=== PATIENT | female | born 1970 | race Caucasian/White ===

== ENCOUNTER 2021-02-02 00:10 | Inpatient (IN) | payer MEDICARE, MEDICAID, SELFPAY ==
[2021-02-02] VITALS (41 sets, daily range): BP systolic 102–146; BP diastolic 74–110; PULSE 117–135; RESP 14–30; TEMP 36.1–37.2; O2SAT 86–100; BMI 24.3
--- NOTE | ~2021-02-02 | XR_ITS ---
EXAMINATION: XR chest 1V portable DATE: 02/02/2021 21:04 INDICATION: Decreased oxygen saturation. TECHNIQUE: A single frontal view of the chest was obtained. COMPARISON: None. FINDINGS: There are mild airspace opacities in the mid and lower lung zones. No pleural effusion or p neumothorax. The heart size is normal. IMPRESSION: 1. Mild airspace opacities in the mid and lower lung zones, consistent with atelectasis or less likel y pneumonia. Reviewed, dictated and finalized at location A. IMPRESSION: 1. Mild airspace opacities in the mid and lower lung zones, consistent with ate lectasis or less likely pneumonia.
--- NOTE | ~2021-02-02 | CT_ITS ---
EXAMINATION: CT brain wo con DATE: 02/02/2021 00:37 INDICATION: Seizure TECHNIQUE: Computed tomography (CT) of the head was performed without intravenous contrast. Sagittal and coronal reconstructions were performed. The mA was adjusted according to patient size. Iterative reconstruction technique was employed. The dose-length product was 605.33 mGy-cm. COMPARISON: None FINDINGS: No acute intracranial hemorrhage, acute infarction or abnormal extra axial fluid collection. Ventricl es are normal and symmetric. No mass/mass effect. The orbits, paranasal sinuses and mastoid air cells are normal. IMPRESSION: 1. Normal head CT. Reviewed, dictated and finalized at location A. IMPRESSION: 1. Normal head CT.
--- NOTE | ~2021-02-02 | CT_ITS ---
EXAMINATION: CT cervical spine wo con DATE: 02/02/2021 00:37 INDICATION: Seizure with with head injury post fall. TECHNIQUE: Computed tomography (CT) of the cervical spine was performed without intravenous contrast. Automated exposure control and iterative reconstruction technique were employed. The dose-length pro duct was 208.75 mGy-cm. COMPARISON: None FINDINGS: Scattered motion artifact most prominent at the level of C4. Straightening of the normal cervical diana dosis which could be positional or secondary to muscle spasm. No fracture. Mild disc height loss at C 6-C7 with suggestion of disc bulge with mild central canal stenosis at this level. Multilevel moderat e to severe right-sided and mild to moderate left-sided cervical facet osteoarthritis. This contribut es to mild neural foraminal stenosis at a few levels on both the left and right cervical soft tissues are unremarkable. Biapical mild emphysema with mild pleural parenchymal scarring. IMPRESSION: 1. Mild cervical spondylosis without evident acute osseous abnormality. Evaluation mildly limited by some motion artifact. Reviewed, dictated and finalized at location A. IMPRESSION: 1. Mild cervical spondylosis without evident acute osseous abnormality. Evaluat ion mildly limited by some motion artifact.
--- NOTE | ~2021-02-02 | US_ITS ---
EXAMINATION: US abdomen limited DATE: 02/06/2021 08:40 INDICATION: Right upper quadrant pain TECHNIQUE: Multiple grayscale and Doppler ultrasound images of the abdomen were obtained. COMPARISON: None available FINDINGS: The head and body of the pancreas are normal. The pancreatic tail is obscured by bowel gas. The liver demonstrates increased echogenicity, heterogenous echotexture, and decreased through trans mission. There is nodularity of the liver surface. Normal hepatopetal flow in the main portal vein. T he gallbladder is surgically absent. The normal common bile duct measures 7 mm. IMPRESSION: 1. Cirrhosis. Reviewed, dictated and finalized at location B. IMPRESSION: 1. Cirrhosis.
--- NOTE | 2021-02-02 00:17 | PC.NURSE ---
Pt suctioned prn and head of bed elevated to protect airway.
--- NOTE | 2021-02-02 00:19 | ECG_ITS ---
Measurements Intervals [place] Rate: 129 P: 65 OR: 128 QRS: -1 QRSD: 90 T: 70 QT: 334 QTc: 489 Interpretive Statements SINUS TACHYCARDIA LOW QRS VOLTAGE IN PRECORDIAL LEADS BORDERLINE ST-T WAVE ABNORMALITY- DIFFUSE LEADS BASELINE ARTIFACT- I, II, III, AVR, AVL, AVF, V1-V6 ABNORMAL ECG Electronically Signed On 02-02-2021 6:35:21 CDT by Morgan Lau D.O.
--- NOTE | 2021-02-02 00:27 | PC.NURSE ---
Pt to CT via stretcher with RAQUEL Serrano in attendance.
--- NOTE | 2021-02-02 00:36 | PC.NURSE ---
Pt returns from CT. Sitting up, pt speaking nonsensically. Attempt to reorient. Mother at bedside.
[2021-02-02] MEDS: SODIUM CHLORIDE 0.9% IV 1,000 ML 999 ML IV CONT (00:40)
[2021-02-02] MEDS: levETIRAcetam 1000MG/NACL100ML 1,000 MG/100 ML BAG 400 MG IVPB (00:40)
--- NOTE | 2021-02-02 00:41 | PC.NURSE ---
Mother states pt has a pain pump for chronic pain from her pancreatitis. Also takes meds for breakthrough pain and is on methadone for pain control as well.
[2021-02-02 00:52] LABS: Basophils Absolute Auto 0.1 K/mm3 (0.0-0.1); Basophils Percent Auto 0.5 % (0.2-1.2); Eosinophils Percent Auto 0.2 % (0-4.4); Hematocrit 47.5 % (37.0-47.0); Hemoglobin 15.3 g/dL (12.0-15.0); Immature Granulocyte Percent A 0.5 % (0-0.5); Lymphocytes Absolute Auto 2.18 K/mm3 (0.9-3.2); Lymphocytes Percent Auto 11.8 % (18.3-44.2); Mean Corpuscular HGB Conc 32.2 g/dl (32-36); Mean Corpuscular Hemoglobin 32.9 pg (26-34); Mean Corpuscular Volume 102.2 fl (80-100); Mean Platelet Volume 10.1 fl (7.4-10.4); Monocytes Absolute Auto 1.4 K/mm3 (0.1-0.6); Monocytes Percent Auto 7.6 % (2.6-8.5); Neutrophils Absolute Auto 14.7 K/mm3 (1.3-6.7); Neutrophils Percent Auto 79.4 % (45.5-73.1); Platelet Count Result 258 k/mm3 (150-375); Red Blood Count 4.65 M/mm3 (4.2-5.4); Red Cell Distribution Width 12.9 % (11.5-14.5); White Blood Count 18.5 K/mm3 (4.5-10.0)
[2021-02-02 01:00] LABS: INR 1.1; Prothrombin Time 13.9 Seconds (11.1-14.7)
[2021-02-02 01:01] LABS: Partial Thromboplastin Time 26.4 SECONDS (22.3-36.8)
--- NOTE | 2021-02-02 01:04 | PC.NURSE ---
Pt's mother remains at bedside. Pt is sitting up, follows some commands. Some words come out clear and others are garbled. Note pt seems to have expressive aphasia. Pt's mother states that the patient was last seen normal at approx 2230, states at approx 2300 mom heard a noise and pt had fallen in her bedroom, causing a head laceration. Mom states pt was acting wierd after hitting her head, came out of the bedroom and mom had cleaned her up. Mom then witnessed a seizure, and contacted EMS. EMS report pt had a grand mal seizure enroute to the hospital. No hx of seizures per mother.
[2021-02-02 01:12] LABS: Acetaminophen < 10 ug/mL (10-30); Ammonia 40 umol/L (9-30); Ethanol < 10 mg/dL (<10); Salicylate < 1.0 mg/dL (2-20)
[2021-02-02 01:13] LABS: Albumin Level 3.9 g/dL (3.5-5.1); Alkaline Phosphatase 397 U/L (38-126); Anion Gap 18 mmol/L (8-16); Aspartate Amino Transferase 153 U/L (14-36); Bilirubin,Total 1.1 mg/dL (0.2-1.3); Blood Urea Nitrogen 3 mg/dL (7-17); Calcium 8.2 mg/dL (8.4-10.2); Carbon Dioxide 14 mmol/L (22-30); Chloride 100 mmol/L (98-107); Creatine Kinase 88 U/L (30-135); Estimated Glomerular Filt Rate > 60; Glucose 321 mg/dL (65-110); Potassium 3.4 mmol/L (3.4-5.0); Sodium 132 mmol/L (137-145)
[2021-02-02 01:16] LABS: Amphetamine Screen Urine Negative (Negative); Barbiturate Screen Urine Negative (Negative); Benzodiazepines Screen Urine Negative (Negative); Cannabinoid Screen Urine Negative (Negative); Cocaine Screen Urine Negative (Negative); Methadone Screen Urine Positive (Negative); Opiate Screen Urine Positive (Negative); Phencyclidine Screen Urine Negative (Negative)
[2021-02-02 01:30] LABS: Add Urine Microscopic? YES; Appearance Urine Clear (Clear); Bilirubin Urine Negative (Negative); Blood Urine 2+ (Negative); Color Urine Straw (Yellow); Glucose Urine UA 3+ mg/dL (Negative); Ketones Urine Trace mg/dL (Negative); Leukocyte Esterase Ur Negative LEU/UL (Negative); Mucus Urine Rare /lpf; Nitrate Urine Negative (Negative); Protein Urine 1+ mg/dL (Negative); RBC Urine 0-2 /hpf (0-2); Specific Grav Ur 1.008 (1.001-1.035); Squamous Epithelial Cell Urine Rare /hpf (Few); Urobilinogen Urine Negative mg/dL (<2.0); WBC Urine 0-3 /hpf
[2021-02-02 01:38] LABS: Alanine Aminotransferase 74 U/L (4-35)
--- NOTE | 2021-02-02 02:17 | PC.NURSE ---
Pt's noe wrist restraints removed. Pt is able to verbalize that she has a catheter in. States I'm still confused sometimes, I'm sorry if I wasn't right . Explained that the restraints were placed only for her safety and that the patient has improved mentation at this time so we can remove. Mother remains at bedside. Pt reoriented PRN.
--- NOTE | 2021-02-02 02:51 | ED.SEIZURE ---
HPI - Seizure General Chief Complaint: Seizure Stated Complaint: SZ with long postictal period Time Seen by Provider: 02/02/21 00:18 Source: family, EMS and RN notes reviewed History of Present Illness HPI Narrative: Patient brought in for concern for seizure. Family noted a loud noise upstairs and went to evaluate the patient they noted she is bleeding from the head and appear confused they attempted to have her sit down then developed convulsive movements they called EMS. On EMS arrival they felt the patient was postictal sugar was 160 they brought her to the ER for evaluation. Is probable to the ER EMS reported a seizure in the ambulance and they gave Ativan which resolved her symptoms. Related Data Home Medications Medication Instructions Recorded Confirmed amlodipine 5 mg PO DAILY 02/02/21 02/02/21 bupropion HCl 150 mg PO DAILY 02/02/21 02/02/21 levorphanol tartrate 2 mg PO Q12H PRN 02/02/21 02/02/21 [id number] [Creon] See Rx Instructions .ROUTE .COMPLEX 02/02/21 02/02/21 methadone 5 mg PO Q12H 02/02/21 02/02/21 ondansetron HCl [Zofran] 4 mg PO Q8H PRN 02/02/21 02/02/21 ziprasidone HCl 20 mg PO BID 02/02/21 02/02/21 Allergies Allergy/AdvReac Type Severity Reaction Status Date / Time Sulfa (Sulfonamide Allergy Mild HIVES Verified 02/02/21 04:32 Antibiotics) Iodinated Contrast Media Allergy Unknown Swelling Verified 02/02/21 07:41 of Lip/Tongue/Throat PROPOXYPHENE NAPSYLATE Allergy Mild INCONTINENT Uncoded 02/02/21 00:38 OF BOWELS/BLADDER/EXTREME VOMITING Review of Systems Review of Systems: ROS unobtainable: Yes unobtainable due to mental status PMFSH Social History Social History Smoking packs per day: 1 Smoking cigarettes per day: 20.0 Years smoked: 10 Smoking pack-years: 10.00 Smoking status: Former smoker Alcohol intake: current Substance use: former Substance use type: marijuana Last use: states unable to remember last drink, a couple weeks Spiritual care concerns: No Exam Narrative: GENERAL: Well-appearing, well-nourished, unresponsive HEAD: Hematoma noted on the left parietal area with superficial laceration with wounds already well approximated EYES: PERRLA and EOMI. ENT: Nares clear, no rhinorrhea or epistaxis. Mucous membranes moist. NECK: Supple. No masses. No JVD CHEST: Clear to auscultation. No respiratory distress. No wheezes rales or rhonchi HEART: Regular rate and rhythm. No murmur heard. Normal peripheral pulses. ABDOMEN: Soft, nontender, nondistended EXTREMITIES: No edema. SKIN: Warm, dry, no rash. NEURO: Unresponsive moves all extremities spontaneously localizes to noxious stimuli Course Reevaluation(s) Reevaluation #1: Patient's mental status used to improve and she is able to give more history. She does report significant alcohol use last drink was yesterday she also reports she is managed at a pain clinic for chronic pancreatitis. She is able to follow commands and her exam is now nonfocal. Patient comfortable with inpatient plan. Date: 02/02/21 Time: 02:51 Vital Signs Vital signs: Vital Signs Temperature 37.1 C 02/02/21 00:11 Pulse Rate 134 H 02/02/21 00:11 Respiratory Rate 19 02/02/21 00:11 Blood Pressure 120/108 H 02/02/21 00:11 Pulse Oximetry 99 02/02/21 00:11 Temperature 36.2 C L 02/02/21 04:00 Pulse Rate 128 H 02/02/21 04:00 Respiratory Rate 18 02/02/21 04:00 Blood Pressure 136/87 02/02/21 04:00 Pulse Oximetry 91 02/02/21 04:00 MDM - Seizure MDM Narrative Medical decision making narrative: Patient presented to the ER for new onset seizures. Patient was initially somnolent and nonverbal however mental status improved and her exam was without focal neurological deficits. Labs and imaging obtained labs with leukocytosis and elevated lactate likely related to suspected seizure. Imaging was without acute process.
--- NOTE | 2021-02-02 03:31 | PC.NURSE ---
Note expressive aphasia seems gone. Pt is A/O x3, and is lucid to normal level per her mother. No further seizure activity noted.
[2021-02-02 03:49] LABS: Reflex Lactic Acid Yes or No Add Lactic
[2021-02-02] MEDS: SODIUM CHLORIDE 0.9% IV 1,000 ML 125 ML IV CONT ×2 (03:53→05:36)
[2021-02-02 04:44] LABS: Lactic Acid 3.4 mmol/L (0.7-2.1)
--- NOTE | 2021-02-02 05:16 | PM.IMHP ---
H&P: HPI History of Present Illness Date/Time: 02/02/21 05:16 Chief Complaint: Seizure Narrative: This is a 50-year-old female with past medical history significant for tobacco dependence, alcohol dependence, chronic opiate use, on methadone program, pain pump implanted. Patient was brought to the emergency room after family witnessed a seizure she was found down having seizure-like activity an blood running on her forehead EMS was called and patient was taken to the emergency room on route to the hospital patient had a witnessed seizure while in the ambulance for which he received Ativan. At the time of my visit patient was awake alert but could not remember the events. She has been in her usual state of health according to emergency room records. Preliminary workup has been essentially nonrevealing. Patient denies any discomfort at the time of my visit she wants to reinitiate her pain pump. Review of Systems Review of Systems: Patient is unable to give any history she is postictal was brought to the emergency room after she was witnessed to have a seizure episode while at home by family member ROS unobtainable: Yes unobtainable due to mental status (Postictal) [facility] Social History Social History Smoking packs per day: 1 Smoking cigarettes per day: 20.0 Years smoked: 10 Smoking pack-years: 10.00 Smoking status: Former smoker Alcohol intake: current Substance use: former Substance use type: marijuana Last use: states unable to remember last drink, a couple weeks Spiritual care concerns: No Meds Home Medications and Allergies Allergies Allergy/AdvReac Type Severity Reaction Status Date / Time Sulfa (Sulfonamide Allergy Mild HIVES Verified 02/02/21 04:32 Antibiotics) PROPOXYPHENE NAPSYLATE Allergy Mild INCONTINENT Uncoded 02/02/21 00:38 OF BOWELS/BLADDER/EXTREME VOMITING Contrast Media Allergy Unknown EAR AND Uncoded 02/02/21 00:38 TONGUE SWELLING Vital Signs Vital Signs - 24 hr 02/02/21 00:11 02/02/21 00:37 02/02/21 00:45 Temperature 98.7 F Pulse Rate 134 H 131 H 126 H Respiratory Rate 19 15 Blood Pressure 120/108 H Pulse Oximetry 99 02/02/21 00:46 02/02/21 01:00 02/02/21 01:01 Temperature Pulse Rate 130 H 129 H 131 H Respiratory Rate 23 H 20 22 H Blood Pressure 123/101 H 125/86 Pulse Oximetry 02/02/21 01:02 02/02/21 01:15 02/02/21 01:16 Temperature Pulse Rate 124 H 129 H Respiratory Rate 23 H 18 21 H Blood Pressure 134/85 Pulse Oximetry 02/02/21 01:30 02/02/21 01:31 02/02/21 01:45 Temperature Pulse Rate 124 H 124 H 126 H Respiratory Rate 22 H 25 H 25 H Blood Pressure 124/86 Pulse Oximetry 02/02/21 01:46 02/02/21 02:00 02/02/21 02:01 Temperature Pulse Rate 126 H 121 H 120 H Respiratory Rate 23 H 30 H 29 H Blood Pressure 137/91 H 134/88 Pulse Oximetry 02/02/21 02:15 02/02/21 02:16 02/02/21 02:30 Temperature Pulse Rate 123 H 126 H 124 H Respiratory Rate 19 16 17 Blood Pressure 136/98 H Pulse Oximetry 02/02/21 02:31 02/02/21 02:45 02/02/21 02:46 Temperature Pulse Rate 122 H 132 H 132 H Respiratory Rate 21 H 24 H 14 Blood Pressure 132/92 H 131/80 Pulse Oximetry 02/02/21 03:00 02/02/21 03:01 02/02/21 03:15 Temperature Pulse Rate 122 H 123 H 123 H Respiratory Rate 20 21 H 27 H Blood Pressure 131/78 Pulse Oximetry 02/02/21 03:16 02/02/21 03:17 02/02/21 03:30 Temperature Pulse Rate 123 H 125 H 126 H Respiratory Rate 22 H 20 25 H Blood Pressure 140/110 H 146/101 H Pulse Oximetry 02/02/21 03:31 02/02/21 03:33 02/02/21 04:00 Temperature 97.2 F L Pulse Rate 128 H 122 H 128 H Respiratory Rate 20 25 H 18 Blood Pressure 128/95 H 136/87 Pulse Oximetry 91 Exam Narrative: Laying in bed Const: General: cooperative, comfortable, no acute distress, well developed, alert and ester
--- NOTE | 2021-02-02 05:52 | ADMIMU ---
This patient, Elizabeth Arreola, was admitted to IMU status, and placed in IMU Room 201-01 02/02/21 at 0405. Patient/family oriented to hospital policies and general routines including ID bracelet, bed and alarms, visiting hours, pain management, procedures, bathroom and other care routines, personal items, smoking policy, room service/diet, and visiting hours. Information on how to activate the Rapid Response Team has been discussed. Patient/Family are encouraged to report perceived risks to care and to ask questions if they do not understand what they are told or what they should do.
--- NOTE | 2021-02-02 08:11 | PC.NURSE ---
This patient, Elizabeth Arreola, was admitted to IMU Room 201-01. Patient/family oriented to hospital policies and general routines including ID bracelet, bed and alarms, visiting hours, pain management, procedures, bathroom and other care routines, personal items, smoking policy, room service/diet, and visiting hours. Pt is forgetful and anxious and needs frequent reminding. Information on how to activate the Rapid Response Team has been discussed. Patient/Family are encouraged to report perceived risks to care and to ask questions if they do not understand what they are told or what they should do.
[2021-02-02] MEDS: methADONE HCL (*CRX) 10 MG TABLET 5 MG PO ×2 (11:43→21:34)
[2021-02-02] MEDS: LIPASE/AMYLASE/PROTEASE 12,000 UNITS CAP 6 CAP PO ×2 (11:43→16:59)
[2021-02-02] MEDS: amLODIPine BESYLATE 5 MG TABLET PO (11:44)
[2021-02-02] MEDS: buPROPion HCL SR (12 HR) 150 MG TAB PO (11:44)
[2021-02-02] MEDS: ZIPRASIDONE HCL 20 MG CAPSULE PO ×2 (11:44→21:35)
[2021-02-02] MEDS: LORazepam INJ (*CRX) 2 MG/ML VIAL 1 MG IV PUSH ×2 (11:45→17:06)
--- NOTE | 2021-02-02 12:03 | PM.IMPN ---
Progress Note: A&P Assessment and Plan (1) Altered mental status: Qualifiers: Altered mental status type: unspecified Qualified Code(s): R41.82 - Altered mental status, unspecified Code(s): R41.82 - Altered mental status, unspecified Status: Acute Assessment and Plan: Secondary to seizure episode, possibly also due to alcohol w/d Neurology evaluation pending MRI brain pending 02/02 to medical floor (2) Seizure: Code(s): R56.9 - Unspecified convulsions Status: Acute Assessment and Plan: Patient was loaded with Keppra at admission and continues on Keppra Possibly secondary to withdrawal from alcohol (3) Opiate dependence: Qualifiers: Substance use status: with other opioid-induced disorder Qualified Code(s): F11.288 - Opioid dependence with other opioid-induced disorder Code(s): F11.20 - Opioid dependence, uncomplicated Status: Acute Assessment and Plan: Continue methadone 5mg bid (4) Chronic pain: Qualifiers: Chronic pain type: chronic pain syndrome Qualified Code(s): G89.4 - Chronic pain syndrome Code(s): G89.29 - Other chronic pain Status: Acute Assessment and Plan: Continue methadone and epidural analgesic pump Add Aqua-K pad (5) Alcohol dependence: Qualifiers: Substance use status: in withdrawal Complication of substance-induced condition: with unspecified complication Qualified Code(s): F10.239 - Alcohol dependence with withdrawal, unspecified Code(s): F10.20 - Alcohol dependence, uncomplicated Status: Acute Assessment and Plan: CIWA protocol with PRN lorazepam Due to methadone use and higher risk for respiratory suppression, will NOT initiate routine chlordiazepoxide (6) Sinus tachycardia: Code(s): R00.0 - Tachycardia, unspecified Status: Acute Assessment and Plan: Likely due to anxiety, alcohol w/d Subjective Date/time seen: 02/02/21 12:03 Interval history: Admitted with generalized tonic-clonic seizure. No prior hx seizures. 02/02 visit: Only pain is chronic epigastric abdominal pain. Nausea today. No emesis. Chronic issues with intermittent n/v. Thinks that her last drink of alcohol was weeks ago , but is not certain. Denied missing any doses of her home medications. Rarely takes levophanol. Does not know what meds are in her epidural analgesic pump. Review of Systems Review of Systems: All systems reviewed & are unremarkable except as noted in HPI and below Exam Narrative: HEENT: PERRL, sclerae nonicteric, pharyngeal mucosa pink and intact NECK: No JVD CHEST: Clear to auscultation. Normal effort. HEART: NL S1/S2, regular, no murmur ABDOMEN: BS+, soft, nontender, no mass, no bruits EXTREMITIES: No cyanosis, edema, or clubbing NEUROLOGIC: CN intact and symmetric to inspection. MUSCULOSKELETAL: Tone and strength symmetric. PSYCH: Alert. Oriented to person, place, BUT NOT TO YEAR ( 1999 ) OR MONTH SKIN:Violaceous, reticular rash over abdomen. Objective Data Vital Signs Vital Signs: Vital Signs - 24 hr 02/02/21 00:11 02/02/21 00:37 02/02/21 00:45 Temperature 98.7 F Pulse Rate 134 H 131 H 126 H Respiratory Rate 19 15 Blood Pressure 120/108 H Pulse Oximetry 99 02/02/21 00:46 02/02/21 01:00 02/02/21 01:01 Temperature Pulse Rate 130 H 129 H 131 H Respiratory Rate 23 H 20 22 H Blood Pressure 123/101 H 125/86 Pulse Oximetry 02/02/21 01:02 02/02/21 01:15 02/02/21 01:16 Temperature Pulse Rate 124 H 129 H Respiratory Rate 23 H 18 21 H Blood Pressure 134/85 Pulse Oximetry 02/02/21 01:30 02/02/21 01:31 02/02/21 01:45 Temperature Pulse Rate 124 H 124 H 126 H Respiratory Rate 22 H 25 H 25 H Blood Pressure 124/86 Pulse Oximetry 02/02/21 01:46 02/02/21 02:00 02/02/21 02:01 Temperature Pulse Rate 126 H 121 H 120 H Respiratory Rate 23 H 30 H 29 H Blood Pressure 137/91
--- NOTE | 2021-02-02 14:26 | WPDNEURCNPN ---
Assessment and Plan Additional Plan change in the mental status with a history of seizures which probably related to alcohol withdrawal MRI of the brain is pending in the meantime supportive care be continued as such patient has already been started on Keppra further adjustment will be made according cervical spine CT scan does not show any fracture and dislocation Consult date: 02/02/21 Time Seen: 14:00 HPI: Elizabeth Arreola is a 50 year old female has been admitted to the [facility] through the emergency room for the complaints of seizure in addition to the history of 1. Tobacco dependence 2. Alcohol dependence 3. Chronic opiates use 4. History of being on methadone program with the pain pump implanted. Patient of brought to the emergency room for the seizure-like activity . EMS were called to the scene and she was brought to the emergency room and route to the hospital patient had witnessed generalized seizure which she received Ativan by the time she was seen in the hospital she was awake alert but had no recall of the incident. She does have ongoing history of smoking pack years 10 current alcohol drinker former substance abuser and present substance is Tonia Godfrey and she was unable to remember when was the last drink she was found to have leukocytosis on CBC BMP was normal with low sodium of 132 hepatic enzymes were with ALT 74 alkaline phos 397 albumin 3.9 and total bilirubin of 1.1 but AST 153 and ALT 74, initial CT scan of the head was negative with no evidence of bleed and the x-ray CT scan of cervical spine revealed spondylosis Review of Systems Review of Systems: All systems reviewed & are unremarkable except as noted in HPI and below PMFSH Social History Social History Smoking packs per day: 1 Smoking cigarettes per day: 20.0 Years smoked: 10 Smoking pack-years: 10.00 Smoking status: Former smoker Alcohol intake: current Substance use: former Substance use type: marijuana Last use: states unable to remember last drink, a couple weeks Spiritual care concerns: No Meds Home Medications and Allergies Home Medications Medication Instructions Recorded Confirmed Type amlodipine 5 mg PO DAILY 02/02/21 02/02/21 History bupropion HCl 150 mg PO DAILY 02/02/21 02/02/21 History levorphanol tartrate 2 mg PO Q12H PRN 02/02/21 02/02/21 History [id number] [Creon] See Rx Instructions .ROUTE .COMPLEX 02/02/21 02/02/21 History methadone 5 mg PO Q12H 02/02/21 02/02/21 History ondansetron HCl [Zofran] 4 mg PO Q8H PRN 02/02/21 02/02/21 History ziprasidone HCl 20 mg PO BID 02/02/21 02/02/21 History Allergies Allergy/AdvReac Type Severity Reaction Status Date / Time Sulfa (Sulfonamide Allergy Mild HIVES Verified 02/02/21 04:32 Antibiotics) Iodinated Contrast Media Allergy Unknown Swelling Verified 02/02/21 07:41 of Lip/Tongue/Throat PROPOXYPHENE NAPSYLATE Allergy Mild INCONTINENT Uncoded 02/02/21 00:38 OF BOWELS/BLADDER/EXTREME VOMITING Vital Signs Vital Signs - 24 hr 02/02/21 00:11 02/02/21 00:37 02/02/21 00:45 Temperature 37.1 C Pulse Rate 134 H 131 H 126 H Respiratory Rate 19 15 Blood Pressure 120/108 H Pulse Oximetry 99 02/02/21 00:46 02/02/21 01:00 02/02/21 01:01 Temperature Pulse Rate 130 H 129 H 131 H Respiratory Rate 23 H 20 22 H Blood Pressure 123/101 H 125/86 Pulse Oximetry 02/02/21 01:02 02/02/21 01:15 02/02/21 01:16 Temperature Pulse Rate 124 H 129 H Respiratory Rate 23 H 18 21 H Blood Pressure 134/85 Pulse Oximetry 02/02/21 01:30 02/02/21 01:31 02/02/21 01:45 Temperature Pulse Rate 124 H 124 H 126 H Respiratory Rate 22 H 25 H 25 H Blood Pressure 124/86 Pulse Oximetry 02/02/21 01:46 02/02/21 02:00 02/02/21 02:01 Temperature Pulse Rate 126 H 121 H 120 H Respiratory Rate 23 H 30 H 29 H Blood Pressure 137/91 H 134/88 Pulse Oximetry
--- NOTE | 2021-02-02 15:57 | PC.NURSE ---
This patient, Elizabeth Arreola, was transferred to [facility] on 02/02/21 at 1550. Personal belongings sent with patient. Report given to Marissa GARCÍA. Appropriate documentation sent with patient.
[2021-02-02] MEDS: ALBUTEROL SULFATE NEB 2.5 MG/0.5 ML INH INHALATION (20:50)
[2021-02-02] MEDS: methylPREDNISolone SOD SUCC 125 MG VIAL IV PUSH (22:30)
[2021-02-02 22:33] LABS: Alveolar/Arterial O2 Gradient 245.3 mmHg; Base Excess ABG 1.5 mEq/l (+/-2.0); Fractional Inspired Oxygen 48 %; HCO3 ABG 26.1 mEq/l (22.0-26.0); Oxygen Content ABG 20.4 %vol (16.0-22.0); Oxyhemoglobin 86.1 % THb (90.0-100.0); PCO2 ABG 41.4 mmHg (35.0-45.0); PO2 ABG 50.2 mmHg (80.0-100.0); PO2 FiO2 Ratio Arterial Blood 1.05 %; Total Hemoglobin 16.9 g/dL (12.0-18.0); pH ABG 7.418 (7.350-7.450)
[2021-02-02 22:36] LABS: Oxygen Saturation ABG 86.2 % (95.0-100.0)
[2021-02-02 22:37] LABS: Device HIGH FLOW NASAL CANN; Site Drawn RIGHT BRACHIAL
[2021-02-03] VITALS (12 sets, daily range): BP systolic 111–133; BP diastolic 72–90; PULSE 110–123; RESP 16–22; TEMP 36.3–36.9; O2SAT 74–100
--- NOTE | 2021-02-03 00:25 | PC.NURSE ---
report given to Dora Lui RN and pt transferred to room 333
--- NOTE | 2021-02-03 00:36 | PC.NURSE ---
This patient, Elizabeth Nelson Prabhjotregi, was received from [ [address] [place] [address] ] on 02/03/21 at 0025. Patient/family oriented to unit policies and routines
[2021-02-03] MEDS: LORazepam INJ (*CRX) 2 MG/ML VIAL 1 MG IV PUSH ×3 (02:31→09:59)
[2021-02-03] MEDS: ALBUTEROL SULFATE NEB 2.5 MG/0.5 ML INH INHALATION (03:09)
[2021-02-03] MEDS: IPRATROPIUM BR 0.02% INH SOLN 0.5 MG/2.5 ML VIAL INHALATION (03:09)
[2021-02-03 07:25] LABS: Hematocrit 49.7 % (37.0-47.0); Hemoglobin 16.4 g/dL (12.0-15.0); Mean Corpuscular Hemoglobin 33.3 pg (26-34); Mean Corpuscular Volume 100.8 fl (80-100); Mean Platelet Volume 9.5 fl (7.4-10.4); Platelet Count Result 233 k/mm3 (150-375); Red Blood Count 4.93 M/mm3 (4.2-5.4); Red Cell Distribution Width 12.9 % (11.5-14.5); White Blood Count 17.3 K/mm3 (4.5-10.0)
[2021-02-03 07:37] LABS: Alanine Aminotransferase 60 U/L (4-35); Albumin Level 3.5 g/dL (3.5-5.1); Alkaline Phosphatase 337 U/L (38-126); Anion Gap 7 mmol/L (8-16); Aspartate Amino Transferase 98 U/L (14-36); Bilirubin,Total 1.6 mg/dL (0.2-1.3); Blood Urea Nitrogen 7 mg/dL (7-17); Calcium 7.2 mg/dL (8.4-10.2); Carbon Dioxide 23 mmol/L (22-30); Chloride 100 mmol/L (98-107); Estimated CRCL calculation 123 ml/min; Estimated Glomerular Filt Rate > 60; Glucose 186 mg/dL (65-110); Potassium 3.3 mmol/L (3.4-5.0); Sodium 130 mmol/L (137-145)
[2021-02-03 08:41] LABS: Folic Acid 10.4 ng/mL (2.76->20)
--- NOTE | 2021-02-03 08:51 | PM.IMPN ---
Progress Note: A&P Assessment and Plan (1) Acute respiratory failure with hypoxemia: Code(s): J96.01 - Acute respiratory failure with hypoxia Status: Acute Assessment and Plan: ASPIRATION PNEUMONIA IS CLINICALLY MOST LIKELY ETIOLOGY with increased wbc, bilateral LL infiltrates and crackles, in the setting of altered mental status I/O NOT c/w fluid overload and no hx chf ABNL CXR and IMPROVED tachycardia render PE unlikely No other etiology of V/Q mismatch suspected (eg, sepsis) Treat with oxygen, Zosyn, bronchodilators COVID-19 swab is pending but pretest probability of disease is LOW Continue isolation while awaiting results (2) Altered mental status: Qualifiers: Altered mental status type: unspecified Qualified Code(s): R41.82 - Altered mental status, unspecified Code(s): R41.82 - Altered mental status, unspecified Status: Acute Assessment and Plan: Secondary to seizure episode, possibly also due to alcohol w/d Neurology evaluation pending MRI brain pending 02/02 to medical floor 02/03 still a bit confused, perhaps in part due to hypoxemia, cannot exclude recurrent seizure (3) Seizure: Code(s): R56.9 - Unspecified convulsions Status: Acute Assessment and Plan: Patient was loaded with Keppra at admission Possibly secondary to withdrawal from alcohol BID Keppra 500mg (4) Opiate dependence: Qualifiers: Substance use status: with other opioid-induced disorder Qualified Code(s): F11.288 - Opioid dependence with other opioid-induced disorder Code(s): F11.20 - Opioid dependence, uncomplicated Status: Acute Assessment and Plan: Continue methadone 5mg bid Continue epidural analgexic pump (5) Chronic pain: Qualifiers: Chronic pain type: chronic pain syndrome Qualified Code(s): G89.4 - Chronic pain syndrome Code(s): G89.29 - Other chronic pain Status: Acute Assessment and Plan: Continue methadone and epidural analgesic pump PRN Aqua-K pad (6) Alcohol dependence: Qualifiers: Substance use status: in withdrawal Complication of substance-induced condition: with unspecified complication Qualified Code(s): F10.239 - Alcohol dependence with withdrawal, unspecified Code(s): F10.20 - Alcohol dependence, uncomplicated Status: Acute Assessment and Plan: WA protocol with PRN lorazepam Due to methadone use and higher risk for respiratory suppression, will NOT initiate routine chlordiazepoxide (7) Sinus tachycardia: Code(s): R00.0 - Tachycardia, unspecified Status: Acute Assessment and Plan: Likely due to anxiety, alcohol w/d 02/02 improved Subjective Date/time seen: 02/03/21 08:51 Interval history: Admitted with generalized tonic-clonic seizure. No prior hx seizures. 02/03 visit: Overnight SOB with decreased sats. Went from room air to 9 L oxygen by high flow cannula. Denied cough or choking. Received lorazepam prn for anxiety. Only pain is chronic epigastric abdominal pain. Hx chronic pancreatitis. Thinks that her last drink of alcohol was weeks ago , but is not certain. Denied missing any doses of her home medications. Rarely takes levophanol. Does not know what meds are in her epidural analgesic pump. Review of Systems Review of Systems: All systems reviewed & are unremarkable except as noted in HPI and below Exam Narrative: HEENT: PERRL, sclerae nonicteric, pharyngeal mucosa pink and intact NECK: No JVD CHEST: BILATERAL LL COARSE CRACKLES. Normal effort. HEART: NL S1/S2, regular, no murmur ABDOMEN: BS+, soft, nontender, no mass, no bruits EXTREMITIES: No cyanosis, edema, or clubbing NEUROLOGIC: CN intact and symmetric to inspection. MUSCULOSKELETAL: Tone and strength symmetric. PSYCH: Alert. Oriented to person, place (HOSPITAL, BUT NOT NAME OF HOSPITAL), BUT NOT TO YEAR ( 2022 ) OR MONTH SKIN:Violaceous, reticular rash over abd
[2021-02-03] MEDS: POTASSIUM CHLORIDE 20 MEQ TABLET 40 MEQ PO ×2 (09:14→13:31)
[2021-02-03] MEDS: ZIPRASIDONE HCL 20 MG CAPSULE PO ×2 (09:15→21:04)
[2021-02-03] MEDS: buPROPion HCL SR (12 HR) 150 MG TAB PO (09:16)
[2021-02-03] MEDS: amLODIPine BESYLATE 5 MG TABLET PO (09:17)
[2021-02-03] MEDS: LIPASE/AMYLASE/PROTEASE 12,000 UNITS CAP 6 CAP PO ×3 (09:17→16:49)
[2021-02-03] MEDS: methADONE HCL (*CRX) 10 MG TABLET 5 MG PO ×2 (09:20→21:01)
[2021-02-03 09:26] LABS: Hepatitis B Surface Antigen Negative (Negative)
[2021-02-03 09:31] LABS: HAV RESULT Negative (Negative); Hepatitis B Core IgM Result Negative (Negative)
[2021-02-03 09:43] LABS: Hepatitis C Virus Antibody Negative (Negative)
[2021-02-03] MEDS: levETIRAcetam 500 MG TABLET PO ×2 (09:59→21:00)
[2021-02-03 19:24] LABS: Urine Cotinine NEGATIVE
[2021-02-03] MEDS: NICOTINE (*PBKC) 7 MG PATCH 1 PATCH TRANSDERM (21:02)
[2021-02-03] MEDS: ALBUTEROL SULFATE (*SP) INHALER 2 PUFF INHALATION (21:28)
[2021-02-04] VITALS (12 sets, daily range): BP systolic 114–128; BP diastolic 72–86; PULSE 105–125; RESP 16–18; TEMP 36.4–36.7; O2SAT 92–99
[2021-02-04 03:44] LABS: SARS-CoV-2 RNA PCR Negative
[2021-02-04 08:03] LABS: Hematocrit 53.2 % (37.0-47.0); Hemoglobin 17.8 g/dL (12.0-15.0); Mean Corpuscular HGB Conc 33.5 g/dl (32-36); Mean Corpuscular Hemoglobin 33.3 pg (26-34); Mean Corpuscular Volume 99.6 fl (80-100); Mean Platelet Volume 9.9 fl (7.4-10.4); Platelet Count Result 249 k/mm3 (150-375); Red Blood Count 5.34 M/mm3 (4.2-5.4); Red Cell Distribution Width 12.8 % (11.5-14.5); White Blood Count 17.4 K/mm3 (4.5-10.0)
[2021-02-04 08:17] LABS: Alanine Aminotransferase 76 U/L (4-35); Albumin Level 3.7 g/dL (3.5-5.1); Alkaline Phosphatase 340 U/L (38-126); Anion Gap 8 mmol/L (8-16); Aspartate Amino Transferase 160 U/L (14-36); Bilirubin,Total 1.6 mg/dL (0.2-1.3); Blood Urea Nitrogen 7 mg/dL (7-17); Calcium 8.2 mg/dL (8.4-10.2); Carbon Dioxide 23 mmol/L (22-30); Chloride 100 mmol/L (98-107); Estimated CRCL calculation 101 ml/min; Estimated Glomerular Filt Rate > 60; Glucose 138 mg/dL (65-110); Magnesium 2.1 mg/dL (1.6-2.3); Sodium 131 mmol/L (137-145)
[2021-02-04] MEDS: LIPASE/AMYLASE/PROTEASE 12,000 UNITS CAP 6 CAP PO ×3 (08:33→16:58)
[2021-02-04] MEDS: buPROPion HCL SR (12 HR) 150 MG TAB PO (08:33)
[2021-02-04] MEDS: ZIPRASIDONE HCL 20 MG CAPSULE PO ×2 (08:34→21:31)
[2021-02-04] MEDS: amLODIPine BESYLATE 5 MG TABLET PO (08:34)
[2021-02-04] MEDS: methADONE HCL (*CRX) 10 MG TABLET 5 MG PO ×2 (08:40→21:31)
[2021-02-04] MEDS: levETIRAcetam 500 MG TABLET PO ×2 (10:42→21:31)
--- NOTE | 2021-02-04 13:08 | PM.IMPN ---
Progress Note: A&P Assessment and Plan (1) Acute respiratory failure with hypoxemia: Code(s): J96.01 - Acute respiratory failure with hypoxia Status: Acute Assessment and Plan: ASPIRATION PNEUMONIA IS CLINICALLY MOST LIKELY ETIOLOGY with increased wbc, bilateral LL infiltrates and crackles, in the setting of altered mental status I/O NOT c/w fluid overload and no hx chf ABNL CXR and IMPROVED tachycardia render PE unlikely No other etiology of V/Q mismatch suspected (eg, sepsis) Treat with oxygen, Zosyn, bronchodilators COVID-19 swab is pending but pretest probability of disease is LOW Continue isolation while awaiting results 02/04 patient was brought to the emergency department after she was found to have witnessed seizure and was started on Keppra, CT scan of the head was negative, patient also had CT scan of the cervical spine did not show any acute injury, patient chest x-ray shows lower lobe pneumonia concerning for aspiration as patient was having witnessed seizures, patient being treated with Zosyn, today patient states feeling little better, denies any complaint of cough shortness of breath fever or chills, patient was seen by Neurology suspect most likely patient is having alcohol withdrawal seizure, recommending MRI further evaluate, patient is allergic to contrast will do MRI without contrast and will follow. (2) Altered mental status: Qualifiers: Altered mental status type: unspecified Qualified Code(s): R41.82 - Altered mental status, unspecified Code(s): R41.82 - Altered mental status, unspecified Status: Acute Assessment and Plan: Secondary to seizure episode, possibly also due to alcohol w/d Neurology evaluation pending MRI brain pending 02/02 to medical floor 02/03 still a bit confused, perhaps in part due to hypoxemia, cannot exclude recurrent seizure (3) Seizure: Code(s): R56.9 - Unspecified convulsions Status: Acute Assessment and Plan: Patient was loaded with Keppra at admission Possibly secondary to withdrawal from alcohol BID Keppra 500mg (4) Opiate dependence: Qualifiers: Substance use status: with other opioid-induced disorder Qualified Code(s): F11.288 - Opioid dependence with other opioid-induced disorder Code(s): F11.20 - Opioid dependence, uncomplicated Status: Acute Assessment and Plan: Continue methadone 5mg bid Continue epidural analgexic pump (5) Chronic pain: Qualifiers: Chronic pain type: chronic pain syndrome Qualified Code(s): G89.4 - Chronic pain syndrome Code(s): G89.29 - Other chronic pain Status: Acute Assessment and Plan: Continue methadone and epidural analgesic pump PRN Aqua-K pad (6) Alcohol dependence: Qualifiers: Substance use status: in withdrawal Complication of substance-induced condition: with unspecified complication Qualified Code(s): F10.239 - Alcohol dependence with withdrawal, unspecified Code(s): F10.20 - Alcohol dependence, uncomplicated Status: Acute Assessment and Plan: CIWA protocol with PRN lorazepam Due to methadone use and higher risk for respiratory suppression, will NOT initiate routine chlordiazepoxide (7) Sinus tachycardia: Code(s): R00.0 - Tachycardia, unspecified Status: Acute Assessment and Plan: Likely due to anxiety, alcohol w/d 02/02 improved Subjective Date/time seen: 02/04/21 13:08 02/02 Chief Complaint: Seizure Narrative: This is a 50-year-old female with past medical history significant for tobacco dependence, alcohol dependence, chronic opiate use, on methadone program, pain pump implanted. Patient was brought to the emergency room after family witnessed a seizure she was found down having seizure-like activity an blood running on her forehead EMS was called and patient was taken to the emergency room on route to the hospital patient had a witnessed seizure whil
[2021-02-04] MEDS: LORazepam INJ (*CRX) 2 MG/ML VIAL 1 MG IV PUSH (16:57)
[2021-02-04] MEDS: NAPROXEN SODIUM 275 MG TABLET PO (16:59)
[2021-02-04] MEDS: NICOTINE (*PBKC) 7 MG PATCH 1 PATCH TRANSDERM (21:00)
[2021-02-05] VITALS (10 sets, daily range): BP systolic 113–126; BP diastolic 81–89; PULSE 66–117; RESP 18–20; TEMP 36.5–36.8; O2SAT 93–96
[2021-02-05 06:34] LABS: Hematocrit 48.9 % (37.0-47.0); Hemoglobin 16.5 g/dL (12.0-15.0); Mean Corpuscular HGB Conc 33.7 g/dl (32-36); Mean Corpuscular Hemoglobin 33.3 pg (26-34); Mean Corpuscular Volume 98.6 fl (80-100); Mean Platelet Volume 9.8 fl (7.4-10.4); Platelet Count Result 222 k/mm3 (150-375); Red Blood Count 4.96 M/mm3 (4.2-5.4); White Blood Count 11.1 K/mm3 (4.5-10.0)
[2021-02-05 06:55] LABS: Alanine Aminotransferase 79 U/L (4-35); Albumin Level 3.1 g/dL (3.5-5.1); Alkaline Phosphatase 283 U/L (38-126); Anion Gap 6 mmol/L (8-16); Aspartate Amino Transferase 170 U/L (14-36); Bilirubin,Total 1.5 mg/dL (0.2-1.3); Blood Urea Nitrogen 9 mg/dL (7-17); Calcium 7.9 mg/dL (8.4-10.2); Carbon Dioxide 22 mmol/L (22-30); Chloride 103 mmol/L (98-107); Estimated CRCL calculation 101 ml/min; Estimated Glomerular Filt Rate > 60; Glucose 112 mg/dL (65-110); Potassium 3.7 mmol/L (3.4-5.0); Sodium 131 mmol/L (137-145)
[2021-02-05] MEDS: LIPASE/AMYLASE/PROTEASE 12,000 UNITS CAP 6 CAP PO ×3 (08:46→16:18)
[2021-02-05] MEDS: NAPROXEN SODIUM 275 MG TABLET PO ×2 (08:47→16:18)
[2021-02-05] MEDS: levETIRAcetam 500 MG TABLET PO ×2 (08:47→20:24)
[2021-02-05] MEDS: amLODIPine BESYLATE 5 MG TABLET PO (08:47)
[2021-02-05] MEDS: buPROPion HCL SR (12 HR) 150 MG TAB PO (08:47)
[2021-02-05] MEDS: ZIPRASIDONE HCL 20 MG CAPSULE PO ×2 (08:47→20:39)
[2021-02-05] MEDS: methADONE HCL (*CRX) 10 MG TABLET 5 MG PO ×2 (08:52→20:24)
--- NOTE | 2021-02-05 10:03 | WPDNEUROLOGY ---
Neurology EEG Report General Information Date of Study: 02/05/21 TEST eeg DIAGNOSIS Seizures CONDITION OF RECORDING awake and drowsy EEG NUMBER [id number] CLINICAL HISTORY patient was brought into hospital 4 days ago with altered mental status following a new onset of seizures. EEG DESCRIPTION Basic resting occipital frequency consists of poorly organized low voltage 8 to 10 hertz per 2nd alpha admixed with low-voltage 15 to 18 hertz per 2nd beta. asymmetrical right-sided low to medium voltage 5 to 7 hertz per 2nd theta is seen admixed with 3 to 4 hertz per 2nd delta activity. Hyperventilation not done. Photic stimulation not done. Non paroxysmal. Focal. Lateralizing. IMPRESSION Abnormal record due to the presence of asymmetrical theta and delta activity with right-sided dominance these abnormalities are suggestive of underlying focal structure lesion or else seizure focus clinical correlation recommended
[2021-02-05 12:58] LABS: Prolactin 23.7 ng/mL (***)
--- NOTE | 2021-02-05 16:16 | PM.IMPN ---
Progress Note: A&P Assessment and Plan (1) Acute respiratory failure with hypoxemia: Code(s): J96.01 - Acute respiratory failure with hypoxia Status: Acute Assessment and Plan: Improving, patient comfortable having conversation on room air. Although she does endorse intermittently becoming short of breath, especially when getting up to move around. Chest x-ray consistent with aspiration pneumonia, bilateral infiltrates and crackles. I/O NOT c/w fluid overload and no hx chf ABNL CXR and IMPROVED tachycardia render PE unlikely No other etiology of V/Q mismatch suspected (eg, sepsis) Treat with oxygen, Zosyn, bronchodilators COVID-19 swab is pending but pretest probability of disease is LOW Continue isolation while awaiting results (2) Altered mental status: Qualifiers: Altered mental status type: unspecified Qualified Code(s): R41.82 - Altered mental status, unspecified Code(s): R41.82 - Altered mental status, unspecified Status: Acute Assessment and Plan: Returned to baseline, patient able to coherently have conversation with interviewer. EEG done 9-, potentially abnormal, appreciate Neurology input Secondary to seizure episode, possibly also due to alcohol w/d (3) Seizure: Code(s): R56.9 - Unspecified convulsions Status: Acute Assessment and Plan: Patient was loaded with Keppra at admission Possibly secondary to withdrawal from alcohol BID Keppra 500mg Neuro on consult, appreciate input (4) Chronic pain: Qualifiers: Chronic pain type: chronic pain syndrome Qualified Code(s): G89.4 - Chronic pain syndrome Code(s): G89.29 - Other chronic pain Status: Acute Assessment and Plan: Continue methadone and epidural analgesic pump PRN Aqua-K pad (5) Alcohol dependence: Qualifiers: Substance use status: in withdrawal Complication of substance-induced condition: with unspecified complication Qualified Code(s): F10.239 - Alcohol dependence with withdrawal, unspecified Code(s): F10.20 - Alcohol dependence, uncomplicated Status: Acute Assessment and Plan: WA protocol with PRN lorazepam Due to methadone use and higher risk for respiratory suppression, will NOT initiate routine chlordiazepoxide Liver US Subjective Date/time seen: 02/05/21 16:16 Resting comfortably in bed. Mentation is at baseline. No acute distress. Review of Systems Review of Systems: All systems reviewed & are unremarkable except as noted in HPI and below Exam Const: General: no acute distress Neck: Neck: no JVD Resp: Effort & Inspection: normal respiratory effort Auscultation: clear to auscultation bilaterally Cardio: Rate: regular rate Rhythm: regular rhythm GI: GI Palp: Yes Soft to palpation and No Tenderness to palpation present (GI) Other: Some pain to palpation over epigastric area. Pain pump implanted in right upper quadrant. Objective Data Vital Signs Vital Signs: Vital Signs - 24 hr 02/04/21 20:00 02/04/21 22:00 02/05/21 00:00 Temperature 98.1 F Pulse Rate 105 H 112 H 104 H Respiratory Rate 18 Blood Pressure 127/76 Pulse Oximetry 92 92 02/05/21 01:50 02/05/21 04:00 02/05/21 06:00 Temperature 98.3 F Pulse Rate 117 H 106 H Respiratory Rate 18 Blood Pressure 113/81 Pulse Oximetry 96 94 02/05/21 08:00 02/05/21 12:00 02/05/21 14:00 Temperature 97.8 F Pulse Rate 103 H 115 H 110 H Respiratory Rate 20 Blood Pressure 117/81 Pulse Oximetry 93 93 Intake/Output Intake/Output: Intake & Output 02/02/21 02/03/21 02/04/21 02/05/21 23:59 23:59 23:59 23:59 Intake Total 3220 1050 2370 1430 Output Total 3250 950 3850 1000 Balance -30 100 -1480 430 Meds/Results Medications: Active Medications Generic Name Dose Route Start Last Admin Trade Name Freq PRN Reason Stop Dose Admin Albuterol 2 puff 02/03/21 10:49 02/03/21 21:28 Albuterol Sulfate
[2021-02-05] MEDS: NICOTINE (*PBKC) 7 MG PATCH 1 PATCH TRANSDERM (20:25)
[2021-02-06 05:29] VITALS: BP 133/83; PULSE 102; RESP 18; TEMP 36.8; O2SAT 97
[2021-02-06 06:49] LABS: Basophils Percent Auto 0.3 % (0.2-1.2); Eosinophils Percent Auto 0.4 % (0-4.4); Hemoglobin 16.5 g/dL (12.0-15.0); Immature Granulocyte Absolute 0.06 K/mm3 (0.00-0.031); Immature Granulocyte Percent A 0.7 % (0-0.5); Lymphocytes Absolute Auto 2.19 K/mm3 (0.9-3.2); Mean Corpuscular HGB Conc 33.7 g/dl (32-36); Mean Platelet Volume 9.6 fl (7.4-10.4); Monocytes Absolute Auto 1.1 K/mm3 (0.1-0.6); Monocytes Percent Auto 11.9 % (2.6-8.5); Neutrophils Absolute Auto 5.7 K/mm3 (1.3-6.7); Neutrophils Percent Auto 62.7 % (45.5-73.1); Platelet Count Result 235 k/mm3 (150-375); Red Cell Distribution Width 13.1 % (11.5-14.5); White Blood Count 9.1 K/mm3 (4.5-10.0)
[2021-02-06 07:14] LABS: Alanine Aminotransferase 85 U/L (4-35); Albumin Level 3.3 g/dL (3.5-5.1); Alkaline Phosphatase 284 U/L (38-126); Anion Gap 9 mmol/L (8-16); Aspartate Amino Transferase 166 U/L (14-36); Bilirubin,Total 1.2 mg/dL (0.2-1.3); Blood Urea Nitrogen 9 mg/dL (7-17); Calcium 8.1 mg/dL (8.4-10.2); Carbon Dioxide 20 mmol/L (22-30); Chloride 103 mmol/L (98-107); Estimated CRCL calculation 86 ml/min; Estimated Glomerular Filt Rate > 60; Glucose 106 mg/dL (65-110); Magnesium 1.9 mg/dL (1.6-2.3); Phosphorus 1.7 mg/dL (2.5-4.5); Potassium 3.3 mmol/L (3.4-5.0); Sodium 132 mmol/L (137-145)
[2021-02-06] MEDS: LIPASE/AMYLASE/PROTEASE 12,000 UNITS CAP 6 CAP PO ×3 (09:02→17:22)
[2021-02-06] MEDS: levETIRAcetam 500 MG TABLET PO ×2 (09:03→20:06)
[2021-02-06] MEDS: amLODIPine BESYLATE 5 MG TABLET PO (09:03)
[2021-02-06] MEDS: NAPROXEN SODIUM 275 MG TABLET PO ×2 (09:03→17:22)
[2021-02-06] MEDS: buPROPion HCL SR (12 HR) 150 MG TAB PO (09:04)
[2021-02-06] MEDS: ZIPRASIDONE HCL 20 MG CAPSULE PO ×2 (09:04→20:06)
[2021-02-06] MEDS: methADONE HCL (*CRX) 10 MG TABLET 5 MG PO ×2 (09:07→20:07)
[2021-02-06 09:40] LABS: Atypical Lymphocytes Present; Platelet Estimate Adequate (Adequate)
[2021-02-06 10:16] VITALS: BP 120/83; PULSE 99; RESP 14; TEMP 36.6; O2SAT 95
[2021-02-06 10:33] VITALS: BP 120/83; PULSE 98; RESP 18; TEMP 36.6; O2SAT 96
[2021-02-06] MEDS: POTASSIUM PHOS/SODIUM PHOS 250 MG TABLET PO (10:38)
--- NOTE | 2021-02-06 13:14 | PM.IMPN ---
Progress Note: A&P Assessment and Plan (1) Chronic pancreatitis: Code(s): K86.1 - Other chronic pancreatitis Status: Acute (2) Aspiration pneumonia: Code(s): J69.0 - Pneumonitis due to inhalation of food and vomit Status: Acute Assessment and Plan: transition from IV Zosyn to 875 twice a day p.o. Augmentin I/O NOT c/w fluid overload and no hx chf ABNL CXR and IMPROVED tachycardia render PE unlikely No other etiology of V/Q mismatch suspected (eg, sepsis) Treat with oxygen, Zosyn, bronchodilators COVID-19 swab is pending but pretest probability of disease is LOW Continue isolation while awaiting results (3) Liver cirrhosis: Code(s): K74.60 - Unspecified cirrhosis of liver Status: Acute Assessment and Plan: confirmed on ultrasound earlier today. will hold amlodipine, and start 20 twice a day propranolol obtain AFP and INR will need outpatient follow-up with GI or hepatology (4) Seizure: Code(s): R56.9 - Unspecified convulsions Status: Acute Assessment and Plan: Patient was loaded with Keppra at admission Possibly secondary to withdrawal from alcohol BID Keppra 500mg Neuro on consult, appreciate input (5) Alcohol dependence: Qualifiers: Substance use status: in withdrawal Complication of substance-induced condition: with unspecified complication Qualified Code(s): F10.239 - Alcohol dependence with withdrawal, unspecified Code(s): F10.20 - Alcohol dependence, uncomplicated Status: Acute Assessment and Plan: [facility] protocol with PRN lorazepam Due to methadone use and higher risk for respiratory suppression, will NOT initiate routine chlordiazepoxide (6) Altered mental status: Qualifiers: Altered mental status type: unspecified Qualified Code(s): R41.82 - Altered mental status, unspecified Code(s): R41.82 - Altered mental status, unspecified Status: Acute Assessment and Plan: Returned to baseline, patient able to coherently have conversation with interviewer. EEG done 02-05, potentially abnormal, appreciate Neurology input Secondary to seizure episode, possibly also due to alcohol w/d Additional Plan patient's mentation has return to baseline. Neuro on consult for management following 1 observed seizure prior to admission, currently on Keppra. Liver ultrasound showing cirrhosis, will start 20 b.i.d. propranolol and observe heart rate and blood pressure. Also obtain AFP an INR, and patient will need close follow-up outpatient with GI or hepatology. Unlikely to be liver transplant candidate given long history of alcoholism. Change antibiotics for aspiration pneumonia from IV Zosyn to p.o. Augmentin b.i.d.. If doing well on these changes tomorrow, can plan for discharge. Subjective Date/time seen: 02/06/21 13:14 No acute medical complaints, continued mild abdominal pain. breathing symptoms have resolved. No fevers or chills, no chest pain. Review of Systems Review of Systems: All systems reviewed & are unremarkable except as noted in HPI and below Exam Const: General: no acute distress Neck: Neck: no JVD Resp: Effort & Inspection: normal respiratory effort Auscultation: clear to auscultation bilaterally Cardio: Rate: regular rate Rhythm: regular rhythm GI: GI Palp: Yes Soft to palpation and Yes Tenderness to palpation present (GI) Other: Mild tenderness to gentle palpation of epigastric area Objective Data Vital Signs Vital Signs: Vital Signs - 24 hr 02/05/21 14:00 02/05/21 16:00 02/05/21 20:00 Temperature 97.8 F Pulse Rate 110 H 103 H 109 H Respiratory Rate 20 Blood Pressure 117/81 Pulse Oximetry 93 02/05/21 21:32 02/06/21 05:29 02/06/21 10:16 Temperature 97.7 F 98.3 F 97.9 F Pulse Rate 66 102 H 99 Respiratory Rate 18 18 14 Blood Pressure 126/89 133/83 120/83 Pulse Oximetry 95 97 95 02/06/21 10:33 Temperature 97.9 F Pulse Rate 9
[2021-02-06 14:18] VITALS: BP 118/90; PULSE 100; RESP 12; TEMP 37; O2SAT 98
[2021-02-06 14:22] LABS: INR 1.1; Prothrombin Time 13.7 Seconds (11.1-14.7)
[2021-02-06] MEDS: ENOXAPARIN 40 MG/0.4 ML SYRINGE SUB-Q (14:22)
--- NOTE | 2021-02-06 15:28 | PC.NURSE ---
On 02/06/21, the student, Helen Oviedo, provided care and completed [facility] documentation on this patient. I have reviewed the student's documentation and agree with the findings.
[2021-02-06 20:06] VITALS: PULSE 72
[2021-02-06] MEDS: AMOXICILLIN/CLAVULANATE K 875-125 MG TAB 1 TABLET PO (20:06)
[2021-02-06] MEDS: PROPRANOLOL HCL 20 MG TABLET PO (20:06)
[2021-02-06] MEDS: NICOTINE (*PBKC) 7 MG PATCH 1 PATCH TRANSDERM (20:09)
[2021-02-06 21:28] VITALS: BP 127/90; PULSE 72; RESP 16; TEMP 36.2; O2SAT 96
[2021-02-07] MEDS: MORPHINE SULFATE (*CRX) 4 MG/ML INJ IV PUSH (02:39)
[2021-02-07 06:00] VITALS: BP 125/89; PULSE 85; RESP 16; TEMP 36.2; O2SAT 97
[2021-02-07 06:59] LABS: Basophils Absolute Auto 0.1 K/mm3 (0.0-0.1); Basophils Percent Auto 1.1 % (0.2-1.2); Eosinophils Absolute Auto 0.1 K/mm3 (0-0.3); Hematocrit 53.1 % (37.0-47.0); Hemoglobin 17.9 g/dL (12.0-15.0); Immature Granulocyte Percent A 1.1 % (0-0.5); Lymphocytes Absolute Auto 2.39 K/mm3 (0.9-3.2); Lymphocytes Percent Auto 25.5 % (18.3-44.2); Mean Corpuscular HGB Conc 33.7 g/dl (32-36); Mean Corpuscular Volume 97.8 fl (80-100); Mean Platelet Volume 9.2 fl (7.4-10.4); Monocytes Absolute Auto 1.1 K/mm3 (0.1-0.6); Monocytes Percent Auto 11.4 % (2.6-8.5); Neutrophils Absolute Auto 5.6 K/mm3 (1.3-6.7); Neutrophils Percent Auto 59.9 % (45.5-73.1); Platelet Count Result 220 k/mm3 (150-375); Red Blood Count 5.43 M/mm3 (4.2-5.4); White Blood Count 9.4 K/mm3 (4.5-10.0)
[2021-02-07 07:33] LABS: Alanine Aminotransferase 99 U/L (4-35); Albumin Level 3.3 g/dL (3.5-5.1); Alkaline Phosphatase 261 U/L (38-126); Anion Gap 8 mmol/L (8-16); Aspartate Amino Transferase 206 U/L (14-36); Bilirubin,Total 1.2 mg/dL (0.2-1.3); Blood Urea Nitrogen 10 mg/dL (7-17); Calcium 8.3 mg/dL (8.4-10.2); Carbon Dioxide 20 mmol/L (22-30); Chloride 105 mmol/L (98-107); Estimated CRCL calculation 86 ml/min; Estimated Glomerular Filt Rate > 60; Glucose 96 mg/dL (65-110); Phosphorus 3.2 mg/dL (2.5-4.5); Potassium 3.6 mmol/L (3.4-5.0); Sodium 133 mmol/L (137-145)
[2021-02-07] MEDS: methADONE HCL (*CRX) 10 MG TABLET 5 MG PO (08:38)
[2021-02-07 08:45] VITALS: PULSE 85
[2021-02-07] MEDS: PROPRANOLOL HCL 20 MG TABLET PO (08:45)
[2021-02-07] MEDS: ZIPRASIDONE HCL 20 MG CAPSULE PO (08:45)
[2021-02-07] MEDS: ENOXAPARIN 40 MG/0.4 ML SYRINGE SUB-Q (08:46)
[2021-02-07] MEDS: AMOXICILLIN/CLAVULANATE K 875-125 MG TAB 1 TABLET PO (08:46)
[2021-02-07] MEDS: buPROPion HCL SR (12 HR) 150 MG TAB PO (08:46)
[2021-02-07] MEDS: LIPASE/AMYLASE/PROTEASE 12,000 UNITS CAP 6 CAP PO ×3 (08:46→16:36)
[2021-02-07] MEDS: levETIRAcetam 500 MG TABLET PO (08:46)
[2021-02-07] MEDS: NAPROXEN SODIUM 275 MG TABLET PO ×2 (08:46→16:36)
[2021-02-07 10:58] VITALS: O2SAT 96
[2021-02-07 11:59] LABS: Atypical Lymphocytes Present; Hypochromasia 1+ (NORMAL); Platelet Estimate Adequate (Adequate)
--- NOTE | 2021-02-07 13:09 | PM.DS ---
DS: Admitting Diagnosis Discharge Date 02/07 Admitting Diagnosis Altered mentation DS: Discharge Diagnosis Discharge Diagnosis (1) Aspiration pneumonia: Code(s): J69.0 - Pneumonitis due to inhalation of food and vomit Status: Acute (2) Liver cirrhosis: Code(s): K74.60 - Unspecified cirrhosis of liver Status: Acute (3) Alcoholic hepatitis: Code(s): K70.10 - Alcoholic hepatitis without ascites Status: Acute DS: Summary Hospital Course Hospital Course: patient is a 50-year-old lady, alcoholic, presenting to hospital with altered mentation. Apparently prior to arriving here she had a witnessed seizure event, and this was followed by postictal period. Brain imaging did not reveal reason for event, and EEG showed some potential underlying pathology, neurology consulted. Patient has been started on Keppra for seizure disorder, and will continue follow-up outpatient with neurologist. Also noted that patient's liver enzymes were suggestive of alcoholic hepatitis, and patient was treated accordingly with CIWA protocol and IV hydration. Liver ultrasound was done, confirmed diagnosis of liver cirrhosis. Patient has been started on propranolol, and we ordered AFP which will be followed as an outpatient, as the result is still pending. INR is normal. Setting patient up with outpatient hepatology appointment at [facility]. Patient encouraged to stop alcohol altogether. Discussed possible sequelae of liver cirrhosis, and importance of continuing propranolol and outpatient follow-up. Patient also had some mild shortness of breath on presentation, chest x-ray showed bibasilar infiltrates suggestive of aspiration pneumonia. Started on IV antibiotics, transition to p.o. which she could tolerate diet, and will send her with p.o. antibiotics to complete outpatient regimen for aspiration pneumonia. She also has some chronic medical issues including chronic pancreatitis and we will continue outpatient management the same as before she got here -namely enzyme supplementation, and control of pain with implanted pain pump. Status at Discharge Functional status at discharge: uses cane/walker Overall status at discharge: patient is progressing back to baseline Time Spent with Patient Time attestation: Total time spent providing and/or coordinating discharge services: Time spent: Less than 30 minutes Exam Const: General: no acute distress Neck: Neck: no JVD Resp: Effort & Inspection: normal respiratory effort Auscultation: clear to auscultation bilaterally Cardio: Rate: regular rate Rhythm: regular rhythm GI: GI Palp: Yes Soft to palpation and No Tenderness to palpation present (GI) DS: Data Data Completed and Pending Labs on day of discharge: Labs from last 24 hours 02/07/21 02/07/21 02/06/21 06:49 06:49 13:45 WBC 9.4 RBC 5.43 H Hgb 17.9 H Hct 53.1 H MCV 97.8 MCH 33.0 MCHC 33.7 RDW 13.0 Plt Count 220 MPV 9.2 Immature Gran % (Auto) 1.1 H Neut % (Auto) 59.9 Lymph % (Auto) 25.5 Swisher % (Auto) 11.4 H Eos % (Auto) 1.0 Baso % (Auto) 1.1 Lymph # (Auto) 2.39 Swisher # (Auto) 1.1 H Eos # (Auto) 0.1 Baso # (Auto) 0.1 Abs Immat Gran (auto) 0.10 H Absolute Neuts (auto) 5.6 Absolute Nucleated RBC 0.0 Nucleated RBC % 0.0 Atypical Lymphocytes Present Platelet Estimate Adequate Hypochromasia 1+ PT 13.7 INR 1.1 Sodium 133 L Potassium 3.6 Chloride 105 Carbon Dioxide 20 L Anion Gap 8 BUN 10 Creatinine 0.60 L Estim Creat Clear Calc 86 Estimated GFR > 60 Glucose 96 Calcium 8.3 L Phosphorus 3.2 Magnesium 2.0 Total Bilirubin 1.2 AST 206 H ALT 99 H Alkaline Phosphatase 261 H Total Protein 7.0 Albumin 3.3 L Discharge Plan Discharge Attending physician on discharge: García Hill Consulting providers: ; Neville Farr Discharging
[2021-02-07 14:00] VITALS: BP 117/80; PULSE 69; RESP 20; TEMP 36.5; O2SAT 94
== END 2021-02-07 17:30 | disposition home or self-care (01) | DRG 100 ==
LOC: ANHED 02:55 → ANHIMU 03:20 → ANH3MEDSUR 02-07 09:53 → ANH2MED 02-08 16:16 → ANH3MEDSUR 02-08 16:16 → ANHIMU 02-08 16:16
PROVIDERS: Internal Medicine; Admitting Provider Internal Medicine; Emergency Provider Emergency Medicine; Visit Provider Internal Medicine
DX: G40.909 Epilepsy, unspecified, not intractable, without status epilepticus (principal); J96.01 Acute respiratory failure with hypoxia; J69.0 Pneumonitis due to inhalation of food and vomit; F11.288 Opioid dependence with other opioid-induced disorder; F10.239 Alcohol dependence with withdrawal, unspecified; K86.1 Other chronic pancreatitis; K70.10 Alcoholic hepatitis without ascites; K74.60 Unspecified cirrhosis of liver; Z20.822 Contact with and (suspected) exposure to COVID-19; R41.82 Altered mental status, unspecified; D72.829 Elevated white blood cell count, unspecified; G89.4 Chronic pain syndrome; R00.0 Tachycardia, unspecified; Z87.891 Personal history of nicotine dependence
CPT/HCPCS: 36415; 36600; 70450; 71045; 72125; 76705; 80053; 80307; 81001; 82140; 82550; 82607; 82746; 82805; 83605; 83735; 84100; 84146; 84443; 85025; 85027; 85610; 85730; 86705; 86709; 86803; 87340; 93005; 94640; 95816; 96361; 96365; 97110; 97116; 97162; 97165; 99285; A9270; C9803; G0378; J1650; J1953; J2060; J2270; J2543; J2930; J7030; U0003; U0005